=== PATIENT | male | born 1965 | race Two or more races ===

== ENCOUNTER → 2024-09-04 | Emergency (ER) | payer OTHER ==
[~2024-09-04] VITALS: Ht 170.2 cm; Wt 90.7 kg
[~2024-09-04] MED LIST: KETO10TA2 PO; NORFLEX100MG PO; TYLENOL ARTHRI650 MG PO
== END | disposition left against medical advice (07) ==
LOC: ER 21:54
DX: Z53.21 Procedure and treatment not carried out due to patient leaving prior to being seen by health care provider (principal)

== ENCOUNTER → 2024-09-05 | Emergency (ER) | payer OTHER ==
[~2024-09-05] VITALS: Ht 177.8 cm; Wt 88.5 kg
[~2024-09-05] MED LIST changes: +ORPHENADRINE CITRATE 30 MG/ML AMPUL IM ONE; +ORPHENADRINE CITRATE 30 MG/ML AMPUL ONE; +TRIAMCINOLONE ACETONIDE 40 MG/ML VIAL IM ONE; +TRIAMCINOLONE ACETONIDE 40 MG/ML VIAL ONE
== END | disposition home or self-care (01) ==
LOC: ER 08:29
DX: M54.41 Lumbago with sciatica, right side (principal); Z88.6 Allergy status to analgesic agent

== ENCOUNTER 2025-04-10 09:20 | Emergency (ER) | payer OTHER ==
[~2025-04-10] VITALS: Ht 172.7 cm; Wt 94.3 kg
[~2025-04-10 09:20] MED LIST changes: -ORPHENADRINE CITRATE 30 MG/ML AMPUL IM ONE; -ORPHENADRINE CITRATE 30 MG/ML AMPUL ONE; -TRIAMCINOLONE ACETONIDE 40 MG/ML VIAL IM ONE; -TRIAMCINOLONE ACETONIDE 40 MG/ML VIAL ONE
[2025-04-10] MEDS ORDERED: CEPHALEXIN500 MG PO (11:32)
[2025-04-10] MEDS ORDERED: CEFTRIAXONE SODIUM 1,000 MG VIAL IM ONE (11:45)
== END 2025-04-10 11:57 | disposition home or self-care (01) ==
LOC: ER 09:20
DX: S91.341A Puncture wound with foreign body, right foot, initial encounter (principal); W45.8XXA Other foreign body or object entering through skin, initial encounter; Y93.89 Activity, other specified; Y92.89 Other specified places as the place of occurrence of the external cause; Z88.6 Allergy status to analgesic agent
CPT/HCPCS: 96372; 99282; J0696

== ENCOUNTER → 2025-06-26 | Emergency (ER) | payer OTHER ==
[~2025-06-26] MED LIST changes: +CEPHALEXIN500 MG PO
== END | disposition left against medical advice (07) ==
LOC: ER 10:49
DX: Z53.21 Procedure and treatment not carried out due to patient leaving prior to being seen by health care provider (principal)